=== PATIENT | female | born 1975 | race Caucasian/White ===

== ENCOUNTER 2017-06-15 08:20 | Day surgery (SDC) | payer OTHER ==
[~2017-06-15] VITALS: Ht 172.7 cm; Wt 86.2 kg
[~2017-06-15 08:20] MED LIST: CYANOCOBALAM1000 MCG PO; FLONASE16 G1 BOTH NARES; NAPROXEN SODIU550 M1 PO; ORTHO CYCLEN1 TABLET PO; PROAIR HFA8.5 GM IH
[2017-06-15 08:50] VITALS: BP 153/70
[2017-06-15] MEDS ORDERED: NORCO 5/3251 TABLET PO (11:25)
[2017-06-15 12:10] VITALS: BP 136/77
[2017-06-15 12:37] VITALS: BP 134/73
== END 2017-06-15 12:39 | disposition home or self-care (01) ==
LOC: SDC 08:20
DX: D25.1 Intramural leiomyoma of uterus (principal); N84.1 Polyp of cervix uteri; N84.0 Polyp of corpus uteri; N92.1 Excessive and frequent menstruation with irregular cycle; J45.909 Unspecified asthma, uncomplicated; Z88.0 Allergy status to penicillin; E53.8 Deficiency of other specified B group vitamins
CPT/HCPCS: 88305; J1100; J1885; J2250; J2405; J3010